=== PATIENT | male | born 1945 | race Caucasian/White ===

== ENCOUNTER 2017-10-05 08:40 | Day surgery (SDC) | payer OTHER ==
[2017-09-30 15:33] VITALS: BMI 25.8
[2017-10-05] MEDS ORDERED: PROPOFOL 20 ML ONE ×2 (09:09)
[2017-10-05 09:55] VITALS: TEMP 97.4
[2017-10-05 10:32] VITALS: BP 131/69; PULSE 54
--- NOTE | 2017-10-06 11:31 | PATH ---
Surgical Pathology Report Patient Name: JOSE SWANN [facility]. Rec. #: [id number] /Age/Gender: 1945 (Age: 71) / M Account: [id number] Location: [facility]-ENDOSCOPY Taken: 10/05/2017 Received: 10/05/2017 Reported: 10/06/2017 Physicians: Brendan Lackey M.D. Specimen(s) Received BX HEPATIC FLEXURE Clinical History Preoperative diagnosis: Rule out colon cancer, constipation Postoperative diagnosis: Polyp Final Diagnosis COLON, HEPATIC FLEXURE, POLYP, BIOPSY: TUBULAR ADENOMA. Electronically Signed Amarilys Davis M.D. Gross Description Received in formalin, labeled "hepatic flexure" is a berry, irregular portion of soft tissue measuring 0.3 cm. in greatest dimension. The specimen is submitted in toto in one cassette. /10/05/201710/05/2017
== END 2017-10-05 10:35 | disposition home or self-care (01) ==
LOC: FASU-ENDO 08:40
PROVIDERS: ATTEND Internal Medicine Gastroenterology
PROC: 0DBL8ZX Excision of Transverse Colon, Via Natural or Artificial Opening Endoscopic, Diagnostic (ICD-10-PCS; principal; 2017-10-05 09:24)
DX: D12.3 Benign neoplasm of transverse colon (principal); K59.00 Constipation, unspecified; K57.30 Diverticulosis of large intestine without perforation or abscess without bleeding